=== PATIENT | male | born 1990 | race African-American/Black ===

== ENCOUNTER 2022-04-20 22:50 | Emergency (ER) | payer MEDICAID, OTHER ==
[~2022-04-20] VITALS: Ht 188 cm; Wt 86.2 kg
[2022-04-20] MEDS ORDERED: IBUPROFEN 400MG TABLET PO ONE (23:30)
[2022-04-20] MEDS ORDERED: ACETAMINOPHEN 325MG TABLET PO ONE (23:30)
[2022-04-21] MEDS ORDERED: TOPUD PO (00:11)
[2022-04-21] MEDS ORDERED: IBUP-2028 MT (00:11)
[2022-04-21] MEDS ORDERED: MORP15TA67 MT (00:11)
[2022-04-21 00:37] VITALS: BP 108/78
== END 2022-04-21 00:40 | disposition home or self-care (01) ==
LOC: ER 22:50
DX: S91.011A Laceration without foreign body, right ankle, initial encounter (principal); X58.XXXA Exposure to other specified factors, initial encounter; Y93.89 Activity, other specified; Y92.89 Other specified places as the place of occurrence of the external cause; Y99.8 Other external cause status; Z98.890 Other specified postprocedural states
CPT/HCPCS: 12001; 99283; Z7610